=== PATIENT | female | born 1970 | race Hispanic/Latino ===

== ENCOUNTER → 2017-12-11 | Outpatient (CLI) | payer MEDICARE | END | disposition home or self-care (01) | LOC: OIH 11:42 | PROVIDERS: ATTEND Internal Medicine | DX: M05.79 Rheumatoid arthritis with rheumatoid factor of multiple sites without organ or systems involvement (principal); M85.871 Other specified disorders of bone density and structure, right ankle and foot | CPT/HCPCS: 73130; 73630 ==

== ENCOUNTER 2018-03-13 14:24 | Inpatient (IN) | payer MEDICARE ==
[~2018-03-13] VITALS: Ht 162.6 cm; Wt 91.9 kg
[2018-03-13 15:10] LABS: BASOPHILS % (AUTO) 0.4 % (0.0-5.0); EOSINOPHILS % (AUTO) 1.1 % (0.0-8.0); HEMATOCRIT 37.4 % (36-48); LYMPHOCYTES % (AUTO) 33.2 % (21.0-51.0); MEAN CORPUSCULAR HEMOGLOBIN 37.1 pg (27.0-33.0); MEAN CORPUSCULAR VOLUME 112.4 fL (79-99); MONOCYTES % (AUTO) 4.4 % (3.0-13.0); NEUTROPHILS % (AUTO) 60.9 % (40.0-77.0); NUCLEATED RED BLOOD CELLS 0.1 % (0.0-0.19); PLATELET COUNT (AUTO) 128 K/uL (130-400); RED BLOOD CELL COUNT(AUTO) 3.33 MIL/uL (4.00-5.50); RED CELL DISTRIBUTION WIDTH 15.2 % (11.0-15.5); WHITE BLOOD COUNT (AUTO) 8.9 K/uL (4.8-10.8)
[2018-03-13 15:24] LABS: CREATININE 1.4 mg/dL (0.5-1.5); POTASSIUM 3.4 mmol/L (3.5-5.1)
[2018-03-13 15:29] LABS: ALBUMIN 2.6 g/dL (3.5-5.0); BILIRUBIN,TOTAL 2.3 mg/dL (0.2-1.0); TOTAL PROTEIN, SERUM 5.8 g/dL (6.0-8.3)
[2018-03-13] MEDS ORDERED: M.V.I. IV [ADULT] 10 ML, THIAMINE HCL 100 MG, FOLIC ACID 1 MG in SODIUM CHLORIDE 0.9% 1... IV SCH (15:30)
[2018-03-13] MEDS ORDERED: FAMOTIDINE/PF 20 MG/2 ML VIAL IV ONE (15:33)
[2018-03-13] MEDS ORDERED: METOCLOPRAMIDE 10 MG/2 ML VIAL ONE (15:48)
[2018-03-13] MEDS ORDERED: MAGNESIUM SULFATE 1 GM in SODIUM CHLORIDE 0.9% 50 ML IV SCH (16:15)
[2018-03-13] MEDS ORDERED: HYDRALAZINE HCL 20 MG/ML VIAL IV PRN (16:45)
[2018-03-13] MEDS ORDERED: MORPHINE SULFATE 2 MG/ML 1ML SYG IV PRN (16:45)
[2018-03-13] MEDS ORDERED: LEVOFLOXACIN 500 MG/D5W 100 ML 100 ML IV SCH (16:45)
[2018-03-13] MEDS: METRONIDAZOLE 500MG/100ML BAG 100 ML IV SCH (16:45)
[2018-03-13 18:11] LABS: APPEARANCE,URINE Cloudy (CLEAR); BILIRUBIN,URINE Small (NEGATIVE); COLOR,URINE Dark Yellow (YELLOW); GLUCOSE, URINE (UA) Negative (NEGATIVE); KETONES,URINE 15 mg/dL (NEGATIVE); LEUKOCYTE ESTERASE ,URINE Trace (NEGATIVE); NITRATE,URINE Negative (NEGATIVE); OCCULT BLOOD,URINE Negative (NEGATIVE); PROTEIN,URINE POS 1+ (NEGATIVE)
[2018-03-13 18:21] LABS: BACTERIA,URINE Moderate /HPF (None Seen); RBC,URINE 0-1 /HPF (0-1); SQUAMOUS EPITHELIAL CELL,UR Few /HPF (0-2)
[2018-03-13 18:22] LABS: AMORPHOUS SEDIMENT,UR Few /LPF (None Seen)
[2018-03-13 18:24] LABS: HCG,QUAL RESULT NEGATIVE (NEGATIVE)
[2018-03-13] MEDS ORDERED: DEXTROSE 50%-WATER 50 ML DISP.SYRIN IV ONE (18:25)
[2018-03-13] MEDS ORDERED: LACTATED RINGERS 1000ML 1,000 ML IV ONE (20:05)
[2018-03-13 20:30] VITALS: BP 103/56
[2018-03-13] MEDS: INSULIN HUMULIN R 100 UNIT/ML 3ML SQ SCH (21:00)
[2018-03-13] MEDS ORDERED: HYDR200T4 PO (21:05)
[2018-03-13] MEDS ORDERED: TOFA11TA PO (21:05)
[2018-03-13] MEDS ORDERED: PRED5POW11 MC (21:05)
[2018-03-13] MEDS: 1/2 NORMAL SALINE 1,000 ML IV SCH (21:28)
[2018-03-13] MEDS: FAMOTIDINE/PF 20 MG/2 ML VIAL IV SCH (21:29)
[2018-03-14] VITALS (7 sets, daily range): BP systolic 85–105; BP diastolic 53–65
[2018-03-14] MEDS: METRONIDAZOLE 500MG/100ML BAG 100 ML IV SCH ×3 (00:41→17:33)
[2018-03-14] MEDS: 1/2 NORMAL SALINE 1,000 ML IV SCH (00:48)
[2018-03-14] MEDS: ONDANSETRON HCL 4 MG/2 ML VIAL IV PRN ×2 (02:15→08:55)
[2018-03-14 04:49] LABS: HEMATOCRIT 30.5 % (36-48); MEAN CORPUSCULAR HEMOGLOBIN 37.2 pg (27.0-33.0); MEAN CORPUSCULAR HGB CONC 33.4 g/dL (32.0-36.0); MEAN CORPUSCULAR VOLUME 111.5 fL (79-99); NUCLEATED RED BLOOD CELLS 0.1 % (0.0-0.19); PLATELET COUNT (AUTO) 88 K/uL (130-400); RED BLOOD CELL COUNT(AUTO) 2.74 MIL/uL (4.00-5.50); RED CELL DISTRIBUTION WIDTH 14.8 % (11.0-15.5); WHITE BLOOD COUNT (AUTO) 7.2 K/uL (4.8-10.8)
[2018-03-14 04:53] LABS: CREATININE 1.5 mg/dL (0.5-1.5)
[2018-03-14] MEDS: INSULIN HUMULIN R 100 UNIT/ML 3ML SQ SCH ×4 (06:00→21:00)
[2018-03-14] MEDS ORDERED: LIDOCAINE HCL-MPF 1% 2ML VIAL IVP PRN (06:30)
[2018-03-14] MEDS ORDERED: POTASSIUM CHLORIDE 10% ELIXIR 20 MEQ/15 ML UDCUP PO PRN (06:30)
[2018-03-14] MEDS ORDERED: POTASSIUM CHLORIDE 20MEQ/100ML 100 ML IV PRN (06:30)
[2018-03-14] MEDS ORDERED: PRED5TAB PO (07:30)
[2018-03-14] MEDS: HYDROXYCHLOROQUINE SULFATE 200 MG TAB PO SCH ×2 (08:54→21:21)
[2018-03-14] MEDS: FAMOTIDINE/PF 20 MG/2 ML VIAL IV SCH ×2 (08:55→21:21)
[2018-03-14] MEDS: PREDNISONE 5 MG TABLET PO SCH ×2 (08:55→21:21)
[2018-03-14] MEDS: DEXTROSE 5%-WATER 1,000 ML IV SCH ×2 (08:55→20:20)
[2018-03-14] MEDS ORDERED: ENOXAPARIN SODIUM 40 MG/0.4 ML SYRINGE SQ SCH (09:00)
[2018-03-14] MEDS: **HM** XELJANZ XR 11MG PO SCH (09:00)
[2018-03-14] MEDS ORDERED: PROMETHAZINE HCL 25 MG/ML 1ML AMPULE IM SCH (10:15)
[2018-03-14] MEDS: OXYCODONE/ACETAMIN 5/325MG TAB PO PRN (21:36)
[2018-03-15] MEDS: METRONIDAZOLE 500MG/100ML BAG 100 ML IV SCH ×3 (01:03→17:55)
[2018-03-15] MEDS: LEVOFLOXACIN 500 MG/D5W 100 ML 100 ML IV SCH (01:04)
[2018-03-15 03:25] VITALS: BP 89/52
[2018-03-15 04:44] LABS: BASOPHILS % (AUTO) 0.3 % (0.0-5.0); EOSINOPHILS % (AUTO) 1.1 % (0.0-8.0); HEMATOCRIT 26.3 % (36-48); LYMPHOCYTES % (AUTO) 8.8 % (21.0-51.0); MEAN CORPUSCULAR HEMOGLOBIN 36.8 pg (27.0-33.0); MEAN CORPUSCULAR HGB CONC 33.2 g/dL (32.0-36.0); MEAN CORPUSCULAR VOLUME 110.6 fL (79-99); MONOCYTES % (AUTO) 6.1 % (3.0-13.0); NEUTROPHILS % (AUTO) 83.7 % (40.0-77.0); NUCLEATED RED BLOOD CELLS 0.1 % (0.0-0.19); PLATELET COUNT (AUTO) 84 K/uL (130-400); RED BLOOD CELL COUNT(AUTO) 2.38 MIL/uL (4.00-5.50); RED CELL DISTRIBUTION WIDTH 14.9 % (11.0-15.5); WHITE BLOOD COUNT (AUTO) 4.5 K/uL (4.8-10.8)
[2018-03-15 04:50] LABS: CREATININE 1.3 mg/dL (0.5-1.5); POTASSIUM 3.2 mmol/L (3.5-5.1)
[2018-03-15] MEDS: DEXTROSE 5%-WATER 1,000 ML IV SCH ×2 (05:57→23:02)
[2018-03-15] MEDS: INSULIN HUMULIN R 100 UNIT/ML 3ML SQ SCH ×4 (06:02→20:28)
[2018-03-15 08:14] VITALS: BP 106/67
[2018-03-15] MEDS: **HM** XELJANZ XR 11MG PO SCH (09:00)
[2018-03-15] MEDS: HYDROXYCHLOROQUINE SULFATE 200 MG TAB PO SCH ×2 (09:31→22:22)
[2018-03-15] MEDS: FAMOTIDINE/PF 20 MG/2 ML VIAL IV SCH ×2 (09:31→22:22)
[2018-03-15] MEDS: PREDNISONE 5 MG TABLET PO SCH ×2 (09:31→22:22)
[2018-03-15] MEDS: POTASSIUM CHLORIDE 20 MEQ ERTAB PO PRN ×2 (09:46→17:56)
[2018-03-15 11:00] VITALS: BP 105/62
[2018-03-15 16:00] VITALS: BP 117/72
[2018-03-15 19:15] VITALS: BP 99/55
[2018-03-15] MEDS ORDERED: DEXTROSE 50%-WATER 50 ML DISP.SYRIN IV ONE (22:56)
[2018-03-15] MEDS ORDERED: DEXTROSE 50%-WATER 50 ML DISP.SYRIN IV PRN (23:00)
[2018-03-15] MEDS ORDERED: GLUCAGON 1MG KIT 1 MG ML IM PRN (23:00)
[2018-03-15] MEDS: OXYCODONE/ACETAMIN 5/325MG TAB PO PRN (23:05)
[2018-03-15 23:15] VITALS: BP 103/62
[2018-03-16] MEDS: METRONIDAZOLE 500MG/100ML BAG 100 ML IV SCH ×3 (01:34→17:39)
[2018-03-16] MEDS: LEVOFLOXACIN 500 MG/D5W 100 ML 100 ML IV SCH (02:58)
[2018-03-16 03:20] VITALS: BP 90/51
[2018-03-16 05:13] LABS: HEMATOCRIT 27.1 % (36-48); MEAN CORPUSCULAR HEMOGLOBIN 36.8 pg (27.0-33.0); MEAN CORPUSCULAR HGB CONC 33.2 g/dL (32.0-36.0); MEAN CORPUSCULAR VOLUME 110.7 fL (79-99); NUCLEATED RED BLOOD CELLS 0.1 % (0.0-0.19); PLATELET COUNT (AUTO) 68 K/uL (130-400); RED BLOOD CELL COUNT(AUTO) 2.45 MIL/uL (4.00-5.50); RED CELL DISTRIBUTION WIDTH 14.5 % (11.0-15.5); WHITE BLOOD COUNT (AUTO) 4.9 K/uL (4.8-10.8)
[2018-03-16 05:20] LABS: % IRON SATURATION 72.5 % (22-44)
[2018-03-16 05:27] LABS: CREATININE 1.6 mg/dL (0.5-1.5); POTASSIUM 4.2 mmol/L (3.5-5.1)
[2018-03-16 05:54] LABS: BAND NEUTROPHILS % (MANUAL) 3 % (0-2); EOSINOPHILS % (MANUAL) 1 % (1-6); LYMPHOCYTES % (MANUAL) 5 % (22-44); MAN.DIFF COMMENT-IMPRESSION MANUAL DIFFERENTIAL; MONOCYTES % (MANUAL) 4 % (2-9); SEGMENTED NEUTROPHILS % 87 % (40-70)
[2018-03-16 05:55] LABS: PLATELET MORPHOLOGY COMMENT MARKED DECREASE
[2018-03-16 07:00] VITALS: BP 96/64
[2018-03-16] MEDS: INSULIN HUMULIN R 100 UNIT/ML 3ML SQ SCH ×4 (07:30→20:36)
[2018-03-16] MEDS: **HM** XELJANZ XR 11MG PO SCH (09:00)
[2018-03-16] MEDS: FAMOTIDINE/PF 20 MG/2 ML VIAL IV SCH ×2 (09:33→20:09)
[2018-03-16] MEDS: HYDROXYCHLOROQUINE SULFATE 200 MG TAB PO SCH ×2 (09:33→20:09)
[2018-03-16] MEDS: PREDNISONE 5 MG TABLET PO SCH ×2 (09:33→20:09)
[2018-03-16 11:40] VITALS: BP 101/63
[2018-03-16] MEDS ORDERED: MULTIVITAMIN TABLET PO SCH (12:30)
[2018-03-16] MEDS: DEXTROSE 5%-WATER 1,000 ML IV SCH ×3 (12:34→22:34)
[2018-03-16] MEDS: MAGNESIUM 2GM PREMIX 50ML 50 ML IV PRN (14:07)
[2018-03-16 16:00] VITALS: BP 96/61
[2018-03-16 19:30] VITALS: BP 87/58
[2018-03-16] MEDS: OXYCODONE/ACETAMIN 5/325MG TAB PO PRN (20:14)
[2018-03-16 23:05] VITALS: BP 108/66
[2018-03-17] MEDS: METRONIDAZOLE 500MG/100ML BAG 100 ML IV SCH ×4 (01:52→23:54)
[2018-03-17 04:00] VITALS: BP 93/58
[2018-03-17] MEDS: LEVOFLOXACIN 500 MG/D5W 100 ML 100 ML IV SCH (04:08)
[2018-03-17 05:02] LABS: HEMATOCRIT 27.3 % (36-48); MEAN CORPUSCULAR HGB CONC 33.5 g/dL (32.0-36.0); MEAN CORPUSCULAR VOLUME 110.7 fL (79-99); PLATELET COUNT (AUTO) 77 K/uL (130-400); RED BLOOD CELL COUNT(AUTO) 2.47 MIL/uL (4.00-5.50); RED CELL DISTRIBUTION WIDTH 14.5 % (11.0-15.5); WHITE BLOOD COUNT (AUTO) 4.7 K/uL (4.8-10.8)
[2018-03-17 05:08] LABS: CREATININE 1.6 mg/dL (0.5-1.5)
[2018-03-17 05:17] LABS: BAND NEUTROPHILS % (MANUAL) 2 % (0-2); EOSINOPHILS % (MANUAL) 1 % (1-6); LYMPHOCYTES % (MANUAL) 5 % (22-44); MONOCYTES % (MANUAL) 4 % (2-9); SEGMENTED NEUTROPHILS % 88 % (40-70)
[2018-03-17 05:18] LABS: MAN.DIFF COMMENT-IMPRESSION MANUAL DIFFERENTIAL
[2018-03-17 05:19] LABS: PLATELET MORPHOLOGY COMMENT DECREASED
[2018-03-17] MEDS: INSULIN HUMULIN R 100 UNIT/ML 3ML SQ SCH ×4 (05:36→20:26)
[2018-03-17 08:00] VITALS: BP 96/68
[2018-03-17] MEDS: **HM** XELJANZ XR 11MG PO SCH (09:00)
[2018-03-17] MEDS: DEXTROSE 5%-WATER 1,000 ML IV SCH ×2 (09:25→20:33)
[2018-03-17] MEDS: MULTIVITAMIN TABLET PO SCH (09:25)
[2018-03-17] MEDS: FAMOTIDINE/PF 20 MG/2 ML VIAL IV SCH ×2 (09:25→20:26)
[2018-03-17] MEDS: PREDNISONE 5 MG TABLET PO SCH ×2 (09:25→20:26)
[2018-03-17] MEDS: HYDROXYCHLOROQUINE SULFATE 200 MG TAB PO SCH ×2 (09:25→20:26)
[2018-03-17 11:00] VITALS: BP 105/55
[2018-03-17 16:00] VITALS: BP 100/65
[2018-03-17 19:00] VITALS: BP 95/66
[2018-03-17] MEDS: OXYCODONE/ACETAMIN 5/325MG TAB PO PRN (21:30)
[2018-03-17 23:47] VITALS: BP 101/63
[2018-03-18] MEDS: LEVOFLOXACIN 500 MG/D5W 100 ML 100 ML IV SCH (01:16)
[2018-03-18 03:49] VITALS: BP 99/65
[2018-03-18] MEDS: DEXTROSE 5%-WATER 1,000 ML IV SCH ×2 (04:06→09:26)
[2018-03-18] MEDS: ONDANSETRON HCL 4 MG/2 ML VIAL IV PRN ×3 (04:23→20:43)
[2018-03-18 04:58] LABS: BASOPHILS % (AUTO) 0.2 % (0.0-5.0); EOSINOPHILS % (AUTO) 0.6 % (0.0-8.0); HEMATOCRIT 25.2 % (36-48); LYMPHOCYTES % (AUTO) 19.7 % (21.0-51.0); MEAN CORPUSCULAR HEMOGLOBIN 36.2 pg (27.0-33.0); MEAN CORPUSCULAR HGB CONC 33.1 g/dL (32.0-36.0); MEAN CORPUSCULAR VOLUME 109.4 fL (79-99); MONOCYTES % (AUTO) 9.4 % (3.0-13.0); NEUTROPHILS % (AUTO) 70.1 % (40.0-77.0); PLATELET COUNT (AUTO) 62 K/uL (130-400); RED BLOOD CELL COUNT(AUTO) 2.31 MIL/uL (4.00-5.50); RED CELL DISTRIBUTION WIDTH 13.9 % (11.0-15.5); WHITE BLOOD COUNT (AUTO) 4.5 K/uL (4.8-10.8)
[2018-03-18 05:10] LABS: CREATININE 1.6 mg/dL (0.5-1.5); MAGNESIUM 1.5 mg/dL (1.80-2.40); POTASSIUM 4.4 mmol/L (3.5-5.1)
[2018-03-18] MEDS: INSULIN HUMULIN R 100 UNIT/ML 3ML SQ SCH ×4 (05:47→20:48)
[2018-03-18] MEDS: MAGNESIUM 2GM PREMIX 50ML 50 ML IV PRN (06:16)
[2018-03-18 08:03] VITALS: BP 94/62
[2018-03-18] MEDS: **HM** XELJANZ XR 11MG PO SCH (09:00)
[2018-03-18] MEDS: MULTIVITAMIN TABLET PO SCH (09:26)
[2018-03-18] MEDS: PREDNISONE 5 MG TABLET PO SCH ×2 (09:26→20:37)
[2018-03-18] MEDS: HYDROXYCHLOROQUINE SULFATE 200 MG TAB PO SCH ×2 (09:26→20:37)
[2018-03-18] MEDS: METRONIDAZOLE 500MG/100ML BAG 100 ML IV SCH ×2 (09:26→17:28)
[2018-03-18] MEDS: FAMOTIDINE/PF 20 MG/2 ML VIAL IV SCH ×2 (09:27→20:37)
[2018-03-18 11:00] VITALS: BP 102/71
[2018-03-18] MEDS: ACETAMINOPHEN-CODEINE 300/30MG TAB PO PRN (12:40)
[2018-03-18 16:00] VITALS: BP 128/82
[2018-03-18 19:55] VITALS: BP 123/76
[2018-03-18 23:15] VITALS: BP 101/76
[2018-03-19] VITALS (22 sets, daily range): BP systolic 82–126; BP diastolic 54–85
[2018-03-19] MEDS: METRONIDAZOLE 500MG/100ML BAG 100 ML IV SCH ×3 (00:04→17:38)
[2018-03-19] MEDS: LEVOFLOXACIN 500 MG/D5W 100 ML 100 ML IV SCH (01:16)
[2018-03-19] MEDS: DEXTROSE 5%-WATER 1,000 ML IV SCH ×2 (02:36→10:34)
[2018-03-19 04:29] LABS: BASOPHILS % (AUTO) 0.2 % (0.0-5.0); EOSINOPHILS % (AUTO) 0.4 % (0.0-8.0); HEMATOCRIT 28.9 % (36-48); LYMPHOCYTES % (AUTO) 20.3 % (21.0-51.0); MEAN CORPUSCULAR HEMOGLOBIN 37.3 pg (27.0-33.0); MEAN CORPUSCULAR HGB CONC 34.1 g/dL (32.0-36.0); MEAN CORPUSCULAR VOLUME 109.3 fL (79-99); MONOCYTES % (AUTO) 6.6 % (3.0-13.0); NEUTROPHILS % (AUTO) 72.5 % (40.0-77.0); PLATELET COUNT (AUTO) 82 K/uL (130-400); RED BLOOD CELL COUNT(AUTO) 2.64 MIL/uL (4.00-5.50); RED CELL DISTRIBUTION WIDTH 14.3 % (11.0-15.5); WHITE BLOOD COUNT (AUTO) 5.8 K/uL (4.8-10.8)
[2018-03-19 04:43] LABS: CREATININE 1.6 mg/dL (0.5-1.5); MAGNESIUM 1.9 mg/dL (1.80-2.40); POTASSIUM 3.9 mmol/L (3.5-5.1)
[2018-03-19] MEDS: MAGNESIUM 2GM PREMIX 50ML 50 ML IV PRN (05:15)
[2018-03-19] MEDS: INSULIN HUMULIN R 100 UNIT/ML 3ML SQ SCH ×4 (05:55→19:46)
[2018-03-19] MEDS: **HM** XELJANZ XR 11MG PO SCH (09:00)
[2018-03-19] MEDS: PREDNISONE 5 MG TABLET PO SCH ×2 (10:57→21:22)
[2018-03-19] MEDS: HYDROXYCHLOROQUINE SULFATE 200 MG TAB PO SCH ×2 (10:58→21:22)
[2018-03-19] MEDS: FAMOTIDINE/PF 20 MG/2 ML VIAL IV SCH ×2 (10:58→21:22)
[2018-03-19] MEDS: MULTIVITAMIN TABLET PO SCH (10:58)
[2018-03-19] MEDS ORDERED: SODIUM CHLORIDE 0.9% 500ML 500 ML IV SCH (11:00)
[2018-03-19 11:21] LABS: TROPONIN I 0.07 ng/mL (0.00-0.06)
[2018-03-19 12:22] LABS: % IRON SATURATION 112.1 % (22-44)
[2018-03-19 13:56] LABS: INR 1.23 (0.85-1.15); PROTHROMBIN TIME 12.9 SEC (9.6-11.6)
[2018-03-19] MEDS ORDERED: FAT EMULSIONS 20% 250ML 250 ML IV SCH (17:21)
[2018-03-19 18:02] LABS: TROPONIN I 0.06 ng/mL (0.00-0.06)
[2018-03-19] MEDS: FAT EMULSIONS 20% 250ML 250 ML IV SCH (21:09)
[2018-03-19] MEDS: M.V.I. IV [ADULT] 10 ML in CLINIMIX E 5%-15% 2,000 ML IV SCH (21:22)
[2018-03-19] MEDS: ACETAMINOPHEN 325 MG TAB PO PRN (21:34)
[2018-03-19 23:54] LABS: TROPONIN I 0.07 ng/mL (0.00-0.06)
[2018-03-20] MEDS: METRONIDAZOLE 500MG/100ML BAG 100 ML IV SCH ×3 (00:56→16:54)
[2018-03-20] MEDS: LEVOFLOXACIN 500 MG/D5W 100 ML 100 ML IV SCH (01:39)
[2018-03-20 03:21] VITALS: BP 108/70
[2018-03-20 06:49] LABS: BASOPHILS % (AUTO) 0.2 % (0.0-5.0); EOSINOPHILS % (AUTO) 0.5 % (0.0-8.0); LYMPHOCYTES % (AUTO) 18.3 % (21.0-51.0); MEAN CORPUSCULAR HGB CONC 33.5 g/dL (32.0-36.0); MEAN CORPUSCULAR VOLUME 110.5 fL (79-99); MONOCYTES % (AUTO) 8.9 % (3.0-13.0); NEUTROPHILS % (AUTO) 72.1 % (40.0-77.0); PLATELET COUNT (AUTO) 73 K/uL (130-400); RED BLOOD CELL COUNT(AUTO) 2.53 MIL/uL (4.00-5.50); RED CELL DISTRIBUTION WIDTH 13.8 % (11.0-15.5); WHITE BLOOD COUNT (AUTO) 6.7 K/uL (4.8-10.8)
[2018-03-20 06:56] LABS: CREATININE 1.4 mg/dL (0.5-1.5); MAGNESIUM 2.1 mg/dL (1.80-2.40); POTASSIUM 3.9 mmol/L (3.5-5.1)
[2018-03-20] MEDS: INSULIN HUMULIN R 100 UNIT/ML 3ML SQ SCH ×4 (07:30→21:00)
[2018-03-20 07:48] VITALS: BP 130/67
[2018-03-20] MEDS: PREDNISONE 5 MG TABLET PO SCH ×2 (08:46→21:11)
[2018-03-20] MEDS: MULTIVITAMIN TABLET PO SCH (08:46)
[2018-03-20] MEDS: **HM** XELJANZ XR 11MG PO SCH (08:46)
[2018-03-20] MEDS: FAMOTIDINE/PF 20 MG/2 ML VIAL IV SCH ×2 (08:46→21:11)
[2018-03-20] MEDS: HYDROXYCHLOROQUINE SULFATE 200 MG TAB PO SCH ×2 (08:46→21:11)
[2018-03-20 11:08] VITALS: BP 111/66
[2018-03-20 16:37] VITALS: BP 116/78
[2018-03-20 20:01] VITALS: BP 127/77
[2018-03-20] MEDS: ACETAMINOPHEN 325 MG TAB PO PRN (21:12)
[2018-03-20] MEDS: M.V.I. IV [ADULT] 10 ML in CLINIMIX E 5%-15% 2,000 ML IV SCH (21:54)
[2018-03-21] VITALS (7 sets, daily range): BP systolic 106–137; BP diastolic 68–93
[2018-03-21] MEDS: METRONIDAZOLE 500MG/100ML BAG 100 ML IV SCH ×3 (00:47→16:44)
[2018-03-21] MEDS: LEVOFLOXACIN 500 MG/D5W 100 ML 100 ML IV SCH (00:48)
[2018-03-21 04:47] LABS: BASOPHILS % (AUTO) 0.2 % (0.0-5.0); EOSINOPHILS % (AUTO) 0.7 % (0.0-8.0); HEMATOCRIT 23.5 % (36-48); LYMPHOCYTES % (AUTO) 13.3 % (21.0-51.0); MEAN CORPUSCULAR HEMOGLOBIN 35.8 pg (27.0-33.0); MEAN CORPUSCULAR HGB CONC 32.7 g/dL (32.0-36.0); MEAN CORPUSCULAR VOLUME 109.6 fL (79-99); MONOCYTES % (AUTO) 9.9 % (3.0-13.0); NEUTROPHILS % (AUTO) 75.9 % (40.0-77.0); PLATELET COUNT (AUTO) 51 K/uL (130-400); RED BLOOD CELL COUNT(AUTO) 2.14 MIL/uL (4.00-5.50); RED CELL DISTRIBUTION WIDTH 13.8 % (11.0-15.5); WHITE BLOOD COUNT (AUTO) 4.4 K/uL (4.8-10.8)
[2018-03-21] MEDS: INSULIN HUMULIN R 100 UNIT/ML 3ML SQ SCH ×4 (05:01→21:00)
[2018-03-21 05:10] LABS: ALBUMIN 1.8 g/dL (3.5-5.0); BILIRUBIN,TOTAL 1.1 mg/dL (0.2-1.0); CREATININE 1.2 mg/dL (0.5-1.5); MAGNESIUM 1.8 mg/dL (1.80-2.40); PHOSPHORUS 3.4 mg/dL (2.5-4.9); POTASSIUM 3.9 mmol/L (3.5-5.1); TOTAL PROTEIN, SERUM 4.1 g/dL (6.0-8.3)
[2018-03-21 08:21] LABS: HEMATOCRIT 24.7 % (36-48); MEAN CORPUSCULAR HEMOGLOBIN 36.1 pg (27.0-33.0); MEAN CORPUSCULAR HGB CONC 32.8 g/dL (32.0-36.0); MEAN CORPUSCULAR VOLUME 109.8 fL (79-99); NUCLEATED RED BLOOD CELLS 0.1 % (0.0-0.19); PLATELET COUNT (AUTO) 53 K/uL (130-400); RED BLOOD CELL COUNT(AUTO) 2.25 MIL/uL (4.00-5.50); RED CELL DISTRIBUTION WIDTH 13.5 % (11.0-15.5); WHITE BLOOD COUNT (AUTO) 4.7 K/uL (4.8-10.8)
[2018-03-21] MEDS: **HM** XELJANZ XR 11MG PO SCH (09:00)
[2018-03-21] MEDS: HYDROXYCHLOROQUINE SULFATE 200 MG TAB PO SCH ×2 (09:37→21:28)
[2018-03-21] MEDS: MULTIVITAMIN TABLET PO SCH (09:37)
[2018-03-21] MEDS: PREDNISONE 5 MG TABLET PO SCH ×2 (09:37→21:28)
[2018-03-21] MEDS: FAMOTIDINE/PF 20 MG/2 ML VIAL IV SCH ×2 (09:37→21:28)
[2018-03-21] MEDS: FAT EMULSIONS 20% 250ML 250 ML IV SCH (09:38)
[2018-03-21] MEDS: ACETAMINOPHEN 325 MG TAB PO PRN ×2 (09:49→21:37)
[2018-03-21] MEDS: M.V.I. IV [ADULT] 10 ML in CLINIMIX E 5%-15% 2,000 ML IV SCH (21:20)
[2018-03-22] MEDS: METRONIDAZOLE 500MG/100ML BAG 100 ML IV SCH ×4 (00:02→23:54)
[2018-03-22] MEDS: LEVOFLOXACIN 500 MG/D5W 100 ML 100 ML IV SCH (01:15)
[2018-03-22 03:00] VITALS: BP 109/62
[2018-03-22 03:56] LABS: BASOPHILS % (AUTO) 0.3 % (0.0-5.0); EOSINOPHILS % (AUTO) 0.2 % (0.0-8.0); HEMATOCRIT 23.3 % (36-48); LYMPHOCYTES % (AUTO) 13.8 % (21.0-51.0); MEAN CORPUSCULAR HEMOGLOBIN 36.8 pg (27.0-33.0); MEAN CORPUSCULAR HGB CONC 33.4 g/dL (32.0-36.0); MEAN CORPUSCULAR VOLUME 110.2 fL (79-99); MONOCYTES % (AUTO) 8.7 % (3.0-13.0); PLATELET COUNT (AUTO) 48 K/uL (130-400); RED BLOOD CELL COUNT(AUTO) 2.12 MIL/uL (4.00-5.50); RED CELL DISTRIBUTION WIDTH 13.4 % (11.0-15.5); WHITE BLOOD COUNT (AUTO) 3.7 K/uL (4.8-10.8)
[2018-03-22 04:00] LABS: CREATININE 1.1 mg/dL (0.5-1.5); POTASSIUM 3.7 mmol/L (3.5-5.1)
[2018-03-22] MEDS: INSULIN HUMULIN R 100 UNIT/ML 3ML SQ SCH ×4 (06:15→20:35)
[2018-03-22 08:00] VITALS: BP 122/72
[2018-03-22] MEDS: PREDNISONE 5 MG TABLET PO SCH ×2 (09:57→20:34)
[2018-03-22] MEDS: MULTIVITAMIN TABLET PO SCH (09:57)
[2018-03-22] MEDS: HYDROXYCHLOROQUINE SULFATE 200 MG TAB PO SCH ×2 (09:57→20:34)
[2018-03-22] MEDS: FAMOTIDINE/PF 20 MG/2 ML VIAL IV SCH ×2 (09:57→20:35)
[2018-03-22] MEDS: ONDANSETRON HCL 4 MG/2 ML VIAL IV PRN (09:57)
[2018-03-22] MEDS: ACETAMINOPHEN 325 MG TAB PO PRN ×2 (10:19→20:35)
[2018-03-22] MEDS: **HM** XELJANZ XR 11MG PO SCH (10:20)
[2018-03-22 11:00] VITALS: BP 110/76
[2018-03-22 16:00] VITALS: BP 113/84
[2018-03-22 19:10] VITALS: BP 129/72
[2018-03-22] MEDS: M.V.I. IV [ADULT] 10 ML in CLINIMIX E 5%-15% 2,000 ML IV SCH (20:54)
[2018-03-22 23:10] VITALS: BP 122/75
[2018-03-23] MEDS: LEVOFLOXACIN 500 MG/D5W 100 ML 100 ML IV SCH (02:32)
[2018-03-23 03:10] VITALS: BP 143/58
[2018-03-23 04:43] LABS: BASOPHILS % (AUTO) 0.3 % (0.0-5.0); EOSINOPHILS % (AUTO) 0.7 % (0.0-8.0); HEMATOCRIT 24.8 % (36-48); LYMPHOCYTES % (AUTO) 10.8 % (21.0-51.0); MEAN CORPUSCULAR HEMOGLOBIN 35.3 pg (27.0-33.0); MEAN CORPUSCULAR HGB CONC 33.1 g/dL (32.0-36.0); MEAN CORPUSCULAR VOLUME 106.8 fL (79-99); MONOCYTES % (AUTO) 9.8 % (3.0-13.0); NEUTROPHILS % (AUTO) 78.4 % (40.0-77.0); PLATELET COUNT (AUTO) 42 K/uL (130-400); RED BLOOD CELL COUNT(AUTO) 2.32 MIL/uL (4.00-5.50); RED CELL DISTRIBUTION WIDTH 14.9 % (11.0-15.5); WHITE BLOOD COUNT (AUTO) 4.3 K/uL (4.8-10.8)
[2018-03-23 04:55] LABS: ALBUMIN 1.9 g/dL (3.5-5.0); BILIRUBIN,TOTAL 1.2 mg/dL (0.2-1.0); TOTAL PROTEIN, SERUM 4.2 g/dL (6.0-8.3)
[2018-03-23] MEDS: INSULIN HUMULIN R 100 UNIT/ML 3ML SQ SCH ×4 (06:33→20:25)
[2018-03-23 07:55] VITALS: BP 118/80
[2018-03-23] MEDS: FAMOTIDINE/PF 20 MG/2 ML VIAL IV SCH ×2 (09:12→20:25)
[2018-03-23] MEDS: ACETAMINOPHEN 325 MG TAB PO PRN ×2 (09:14→20:26)
[2018-03-23] MEDS: HYDROXYCHLOROQUINE SULFATE 200 MG TAB PO SCH ×2 (09:14→20:25)
[2018-03-23] MEDS: MULTIVITAMIN TABLET PO SCH (09:14)
[2018-03-23] MEDS: PREDNISONE 5 MG TABLET PO SCH ×2 (09:14→20:25)
[2018-03-23] MEDS: METRONIDAZOLE 500MG/100ML BAG 100 ML IV SCH ×2 (10:27→18:13)
[2018-03-23] MEDS: **HM** XELJANZ XR 11MG PO SCH (10:36)
[2018-03-23 11:00] VITALS: BP 121/68
[2018-03-23 16:00] VITALS: BP 139/84
[2018-03-23 19:00] VITALS: BP_SYST 130; BP_SYST 148; BP_DIAS 73; BP_DIAS 89
[2018-03-23] MEDS: NYSTATIN 15 GM POWDER TP SCH (20:28)
[2018-03-23] MEDS: HYDROCORTISONE 1% 28.35 GM CREAM TP SCH (20:28)
[2018-03-23] MEDS: M.V.I. IV [ADULT] 10 ML in CLINIMIX E 5%-15% 2,000 ML IV SCH (21:20)
[2018-03-23 23:05] VITALS: BP 91/63
[2018-03-24] VITALS (23 sets, daily range): BP systolic 98–152; BP diastolic 61–97
[2018-03-24] MEDS: METRONIDAZOLE 500MG/100ML BAG 100 ML IV SCH ×3 (00:52→16:45)
[2018-03-24] MEDS: LEVOFLOXACIN 500 MG/D5W 100 ML 100 ML IV SCH (02:07)
[2018-03-24 05:33] LABS: BASOPHILS % (AUTO) 0.4 % (0.0-5.0); EOSINOPHILS % (AUTO) 0.1 % (0.0-8.0); HEMATOCRIT 24.4 % (36-48); LYMPHOCYTES % (AUTO) 12.9 % (21.0-51.0); MEAN CORPUSCULAR HEMOGLOBIN 36.1 pg (27.0-33.0); MEAN CORPUSCULAR HGB CONC 33.6 g/dL (32.0-36.0); MEAN CORPUSCULAR VOLUME 107.6 fL (79-99); MONOCYTES % (AUTO) 10.7 % (3.0-13.0); NEUTROPHILS % (AUTO) 75.9 % (40.0-77.0); NUCLEATED RED BLOOD CELLS 0.1 % (0.0-0.19); PLATELET COUNT (AUTO) 46 K/uL (130-400); RED BLOOD CELL COUNT(AUTO) 2.27 MIL/uL (4.00-5.50); RED CELL DISTRIBUTION WIDTH 14.4 % (11.0-15.5); WHITE BLOOD COUNT (AUTO) 4.2 K/uL (4.8-10.8)
[2018-03-24 05:38] LABS: CREATININE 0.9 mg/dL (0.5-1.5); POTASSIUM 4.3 mmol/L (3.5-5.1)
[2018-03-24] MEDS: INSULIN HUMULIN R 100 UNIT/ML 3ML SQ SCH ×4 (06:32→21:00)
[2018-03-24] MEDS ORDERED: PROPOFOL 10 MG/ML 20ML VIAL IV ONE (08:12)
[2018-03-24] MEDS: **HM** XELJANZ XR 11MG PO SCH (09:00)
[2018-03-24] MEDS: FAMOTIDINE/PF 20 MG/2 ML VIAL IV SCH ×2 (09:54→22:19)
[2018-03-24] MEDS: PREDNISONE 5 MG TABLET PO SCH ×2 (09:54→22:19)
[2018-03-24] MEDS: HYDROXYCHLOROQUINE SULFATE 200 MG TAB PO SCH ×2 (09:54→22:19)
[2018-03-24] MEDS: MULTIVITAMIN TABLET PO SCH (09:54)
[2018-03-24] MEDS: ACETAMINOPHEN 325 MG TAB PO PRN ×2 (10:11→22:21)
[2018-03-24 13:06] LABS: % IRON SATURATION 58.9 % (22-44)
[2018-03-24] MEDS: FAT EMULSIONS 20% 250ML 250 ML IV SCH (14:50)
[2018-03-24] MEDS ORDERED: M.V.I. IV [ADULT] 10 ML in CLINIMIX E 5%-15% 2,000 ML IV ONE (18:00)
[2018-03-24] MEDS: HYDROCORTISONE 1% 28.35 GM CREAM TP SCH ×2 (18:06→22:21)
[2018-03-24] MEDS: NYSTATIN 15 GM POWDER TP SCH ×3 (18:06→22:21)
[2018-03-25] MEDS: METRONIDAZOLE 500MG/100ML BAG 100 ML IV SCH ×4 (01:27→23:57)
[2018-03-25] MEDS: LEVOFLOXACIN 500 MG/D5W 100 ML 100 ML IV SCH ×2 (02:19→23:56)
[2018-03-25 03:00] VITALS: BP 135/36
[2018-03-25 06:21] LABS: BASOPHILS % (AUTO) 0.4 % (0.0-5.0); EOSINOPHILS % (AUTO) 0.5 % (0.0-8.0); HEMATOCRIT 24.2 % (36-48); LYMPHOCYTES % (AUTO) 9.1 % (21.0-51.0); MEAN CORPUSCULAR HEMOGLOBIN 35.6 pg (27.0-33.0); MEAN CORPUSCULAR HGB CONC 33.1 g/dL (32.0-36.0); MEAN CORPUSCULAR VOLUME 107.7 fL (79-99); MONOCYTES % (AUTO) 9.5 % (3.0-13.0); NEUTROPHILS % (AUTO) 80.5 % (40.0-77.0); PLATELET COUNT (AUTO) 41 K/uL (130-400); RED BLOOD CELL COUNT(AUTO) 2.25 MIL/uL (4.00-5.50); RED CELL DISTRIBUTION WIDTH 14.9 % (11.0-15.5); WHITE BLOOD COUNT (AUTO) 4.5 K/uL (4.8-10.8)
[2018-03-25] MEDS: INSULIN HUMULIN R 100 UNIT/ML 3ML SQ SCH ×4 (06:41→20:56)
[2018-03-25 06:46] LABS: POTASSIUM 4.1 mmol/L (3.5-5.1)
[2018-03-25 08:00] VITALS: BP 124/83
[2018-03-25] MEDS: NYSTATIN 15 GM POWDER TP SCH ×3 (09:00→19:53)
[2018-03-25] MEDS: **HM** XELJANZ XR 11MG PO SCH (09:00)
[2018-03-25] MEDS: HYDROCORTISONE 1% 28.35 GM CREAM TP SCH ×2 (09:00→19:54)
[2018-03-25] MEDS: HYDROXYCHLOROQUINE SULFATE 200 MG TAB PO SCH ×2 (09:22→19:53)
[2018-03-25] MEDS: FAMOTIDINE/PF 20 MG/2 ML VIAL IV SCH ×2 (09:22→19:53)
[2018-03-25] MEDS: PREDNISONE 5 MG TABLET PO SCH ×2 (09:23→19:54)
[2018-03-25] MEDS: ACETAMINOPHEN 325 MG TAB PO PRN (09:23)
[2018-03-25] MEDS: MULTIVITAMIN TABLET PO SCH (09:23)
[2018-03-25] MEDS ORDERED: FAT EMULSIONS 20% 250ML 250 ML IV SCH (10:00)
[2018-03-25 11:45] VITALS: BP 120/81
[2018-03-25 16:00] VITALS: BP 129/81
[2018-03-25] MEDS: ACETAMINOPHEN-CODEINE 300/30MG TAB PO PRN (19:58)
[2018-03-25 20:00] VITALS: BP 121/80
[2018-03-26] VITALS: BP 106/65
[2018-03-26 04:00] VITALS: BP 135/79
[2018-03-26 05:29] LABS: BASOPHILS % (AUTO) 0.3 % (0.0-5.0); EOSINOPHILS % (AUTO) 0.3 % (0.0-8.0); HEMATOCRIT 22.9 % (36-48); LYMPHOCYTES % (AUTO) 13.6 % (21.0-51.0); MEAN CORPUSCULAR HEMOGLOBIN 36.6 pg (27.0-33.0); MEAN CORPUSCULAR HGB CONC 33.9 g/dL (32.0-36.0); NEUTROPHILS % (AUTO) 75.8 % (40.0-77.0); PLATELET COUNT (AUTO) 52 K/uL (130-400); RED BLOOD CELL COUNT(AUTO) 2.12 MIL/uL (4.00-5.50); RED CELL DISTRIBUTION WIDTH 14.7 % (11.0-15.5); WHITE BLOOD COUNT (AUTO) 4.1 K/uL (4.8-10.8)
[2018-03-26 05:35] LABS: CREATININE 0.9 mg/dL (0.5-1.5); POTASSIUM 3.9 mmol/L (3.5-5.1)
[2018-03-26] MEDS: INSULIN HUMULIN R 100 UNIT/ML 3ML SQ SCH ×3 (06:34→16:11)
[2018-03-26 07:54] VITALS: BP 128/90
[2018-03-26] MEDS: **HM** XELJANZ XR 11MG PO SCH (09:00)
[2018-03-26] MEDS: MULTIVITAMIN TABLET PO SCH (09:06)
[2018-03-26] MEDS: FAMOTIDINE/PF 20 MG/2 ML VIAL IV SCH (09:06)
[2018-03-26] MEDS: PREDNISONE 5 MG TABLET PO SCH (09:06)
[2018-03-26] MEDS: HYDROXYCHLOROQUINE SULFATE 200 MG TAB PO SCH (09:06)
[2018-03-26] MEDS: METRONIDAZOLE 500MG/100ML BAG 100 ML IV SCH ×2 (09:07→16:52)
[2018-03-26] MEDS: HYDROCORTISONE 1% 28.35 GM CREAM TP SCH (09:14)
[2018-03-26] MEDS: NYSTATIN 15 GM POWDER TP SCH ×2 (09:14→14:00)
[2018-03-26] MEDS: ACETAMINOPHEN 325 MG TAB PO PRN (09:14)
[2018-03-26 11:28] VITALS: BP 127/77
[2018-03-26 16:00] VITALS: BP 125/82
== END 2018-03-26 19:35 | DRG 393 ==
LOC: EDH 14:24 → EDHIP 16:20 → OBSVTOIN 16:20 → 4AH 17:41 → 4BH 03-16 21:10
PROVIDERS: ADMIT Hospitalist; ATTEND Hospitalist
PROC: 30233N1 Transfusion of Nonautologous Red Blood Cells into Peripheral Vein, Percutaneous Approach (ICD-10-PCS; 2018-03-19)
PROC: 02HV33Z Insertion of Infusion Device into Superior Vena Cava, Percutaneous Approach (ICD-10-PCS; 2018-03-19)
PROC: 0D768ZZ Dilation of Stomach, Via Natural or Artificial Opening Endoscopic (ICD-10-PCS; principal; 2018-03-24)
PROC: 0DB68ZX Excision of Stomach, Via Natural or Artificial Opening Endoscopic, Diagnostic (ICD-10-PCS; 2018-03-24)
PROC: 0D7A8ZZ Dilation of Jejunum, Via Natural or Artificial Opening Endoscopic (ICD-10-PCS; 2018-03-24)
DX: K95.89 Other complications of other bariatric procedure (principal); N17.0 Acute kidney failure with tubular necrosis; A04.72 Enterocolitis due to Clostridium difficile, not specified as recurrent; K90.9 Intestinal malabsorption, unspecified; E87.0 Hyperosmolality and hypernatremia; K91.850 Pouchitis; E86.0 Dehydration; I10 Essential (primary) hypertension; E11.9 Type 2 diabetes mellitus without complications; E87.6 Hypokalemia; K76.0 Fatty (change of) liver, not elsewhere classified; E66.01 Morbid (severe) obesity due to excess calories; D64.9 Anemia, unspecified; E83.42 Hypomagnesemia; M06.9 Rheumatoid arthritis, unspecified; R63.3 Feeding difficulties; Z68.34 Body mass index [BMI] 34.0-34.9, adult; Z98.84 Bariatric surgery status; Z88.1 Allergy status to other antibiotic agents; Z88.8 Allergy status to other drugs, medicaments and biological substances
CPT/HCPCS: 36415; 36430; 43239; 43249; 70450; 71045; 74176; 80048; 80053; 80061; 81001; 81025; 82270; 82306; 82525; 82533; 82550; 82607; 82728; 82746; 82948; 83540; 83550; 83605; 83615; 83690; 83735; 83874; 84100; 84132; 84207; 84425; 84443; 84484; 85025; 85027; 85378; 85610; 86850; 86900; 86901; 86922; 87507; 88305; 93005; 93971; 97039; A6250; C1725; C1894; G0378; G0480; J1650; J1956; J2405; J2550; J2704; J2765; J3411; J3475; J3480; J3490; J7030; J7040; J7070; J7120; J7512; P9016

== ENCOUNTER 2018-06-13 12:05 | Inpatient (IN) | payer MEDICARE ==
[~2018-06-13] VITALS: Ht 162.6 cm; Wt 82.9 kg
[~2018-06-13 12:05] MED LIST: FAMO20TA8 PO; HYDR200T4 PO; METR-172 PO; PANT40TA25 PO; PRED5TAB PO; TOFA11TA PO
[2018-06-13 13:10] LABS: BASOPHILS % (AUTO) 0.3 % (0.0-5.0); EOSINOPHILS % (AUTO) 0.3 % (0.0-8.0); HEMATOCRIT 35.8 % (36-48); MEAN CORPUSCULAR HEMOGLOBIN 35.8 pg (27.0-33.0); MEAN CORPUSCULAR HGB CONC 32.7 g/dL (32.0-36.0); MEAN CORPUSCULAR VOLUME 109.4 fL (79-99); MONOCYTES % (AUTO) 6.6 % (3.0-13.0); NEUTROPHILS % (AUTO) 73.8 % (40.0-77.0); NUCLEATED RED BLOOD CELLS 0.1 % (0.0-0.19); PLATELET COUNT (AUTO) 123 K/uL (130-400); RED BLOOD CELL COUNT(AUTO) 3.27 MIL/uL (4.00-5.50); RED CELL DISTRIBUTION WIDTH 17.4 % (11.0-15.5)
[2018-06-13] MEDS ORDERED: ONDANSETRON HCL 4 MG/2 ML VIAL ONE (13:18)
[2018-06-13 13:23] LABS: ALBUMIN 2.3 g/dL (3.5-5.0); BILIRUBIN,DIRECT 0.4 mg/dL (0.0-0.3); BILIRUBIN,TOTAL 1.4 mg/dL (0.2-1.0); CREATININE 1.3 mg/dL (0.5-1.5); POTASSIUM 4.5 mmol/L (3.5-5.1); TOTAL PROTEIN, SERUM 5.7 g/dL (6.0-8.3)
[2018-06-13] MEDS: SODIUM CHLORIDE 0.9% 1000ML 1,000 ML IV SCH (17:40)
[2018-06-13] MEDS ORDERED: HYDRALAZINE HCL 20 MG/ML VIAL IV PRN (17:45)
[2018-06-13] MEDS ORDERED: ONDANSETRON HCL 4 MG/2 ML VIAL IV PRN (17:45)
[2018-06-13] MEDS ORDERED: LOPERAMIDE HCL 2 MG CAP PO PRN (17:45)
[2018-06-13] MEDS ORDERED: M.V.I. IV [ADULT] 10 ML, FOLIC ACID 1 MG, THIAMINE HCL 100 MG in SODIUM CHLORIDE 0.9% 1... IV SCH (18:15)
[2018-06-13] MEDS ORDERED: COMPOUND IV REFRIGERATED 1 EACH IVSOLN MISC PRN (18:30)
[2018-06-13] MEDS ORDERED: COMPOUND IV MISC 1 EACH IVSOLN MISC PRN (18:30)
[2018-06-13 20:30] VITALS: BP 92/55
--- NOTE | 2018-06-13 20:40 | NUR ---
Received pt. from ER ,pt. is awake and coherent with ongoing Banana bag infusing @ 100 ml/hr.
[2018-06-13] MEDS: FAMOTIDINE/PF 20 MG/2 ML VIAL IV SCH (21:11)
[2018-06-14] VITALS (7 sets, daily range): BP systolic 86–111; BP diastolic 48–66
[2018-06-14] MEDS: SODIUM CHLORIDE 0.9% 1000ML 1,000 ML IV SCH (04:35)
[2018-06-14] MEDS: DEXTROSE 5%-WATER 1,000 ML IV SCH ×2 (08:54→22:27)
[2018-06-14] MEDS: FAMOTIDINE/PF 20 MG/2 ML VIAL IV SCH ×2 (08:54→20:58)
[2018-06-14] MEDS: PREDNISONE 5 MG TABLET PO SCH ×2 (08:54→20:58)
[2018-06-14] MEDS: HYDROXYCHLOROQUINE SULFATE 200 MG TAB PO SCH ×2 (08:54→20:58)
[2018-06-14] MEDS: ENOXAPARIN SODIUM 40 MG/0.4 ML SYRINGE SQ SCH (08:55)
[2018-06-14] MEDS: TOFACITINIB CITRATE 11 MG PO SCH (08:55)
[2018-06-14] MEDS: IRON SUCROSE COMPLEX 100 MG in SODIUM CHLORIDE 0.9% 50 ML IV SCH (10:53)
--- NOTE | 2018-06-14 16:25 | NUR ---
INITIAL: Met with pt this afternoon to discuss dcp. Pt states that she lives w her 24yo son. Prior to admission has been mostly wc bound. Transfers w assist and completes ADLs w assist. Pt states that she owns a sh chair and 3in1 commode. Pt states that she feels short term rehab will benefit her prior to return home. She mentions that she has declined greatly in function. KRZYSZTOF/PC consents signed for both [facility]. Pt states that she would like to speak w both reps before making final decision. Referral/calls made to both [facility] and [facility]. Addendum: 06/15/18 at 1800 by ZAKI LANDA CM Amended: Links added.
[2018-06-14] MEDS: ACETAMINOPHEN-CODEINE 300/30MG TAB PO PRN (20:58)
[2018-06-15] VITALS (7 sets, daily range): BP systolic 82–103; BP diastolic 51–76
[2018-06-15 07:46] LABS: BASOPHILS % (AUTO) 0.2 % (0.0-5.0); EOSINOPHILS % (AUTO) 0.3 % (0.0-8.0); HEMATOCRIT 31.3 % (36-48); LYMPHOCYTES % (AUTO) 22.4 % (21.0-51.0); MEAN CORPUSCULAR VOLUME 109.3 fL (79-99); MONOCYTES % (AUTO) 6.3 % (3.0-13.0); NEUTROPHILS % (AUTO) 70.8 % (40.0-77.0); PLATELET COUNT (AUTO) 94 K/uL (130-400); RED BLOOD CELL COUNT(AUTO) 2.86 MIL/uL (4.00-5.50); RED CELL DISTRIBUTION WIDTH 17.9 % (11.0-15.5); WHITE BLOOD COUNT (AUTO) 5.9 K/uL (4.8-10.8)
[2018-06-15 08:11] LABS: CREATININE 1.2 mg/dL (0.5-1.5)
[2018-06-15 08:15] LABS: POTASSIUM 2.9 mmol/L (3.5-5.1)
[2018-06-15] MEDS: FAMOTIDINE/PF 20 MG/2 ML VIAL IV SCH ×2 (08:42→21:15)
[2018-06-15] MEDS: PREDNISONE 5 MG TABLET PO SCH ×2 (08:42→21:15)
[2018-06-15] MEDS: HYDROXYCHLOROQUINE SULFATE 200 MG TAB PO SCH ×2 (08:42→21:15)
[2018-06-15] MEDS: IRON SUCROSE COMPLEX 100 MG in SODIUM CHLORIDE 0.9% 50 ML IV SCH (08:42)
[2018-06-15] MEDS: ENOXAPARIN SODIUM 40 MG/0.4 ML SYRINGE SQ SCH ×2 (08:43→08:57)
[2018-06-15] MEDS ORDERED: POTASSIUM CHLORIDE 10% ELIXIR 20 MEQ/15 ML UDCUP PO PRN (08:45)
[2018-06-15] MEDS ORDERED: POTASSIUM CHLORIDE 20MEQ/100ML 100 ML IV PRN (08:45)
[2018-06-15] MEDS ORDERED: LIDOCAINE HCL-MPF 1% 2ML VIAL IVP PRN (08:45)
[2018-06-15] MEDS: TOFACITINIB CITRATE 11 MG PO SCH (08:57)
[2018-06-15] MEDS: ACETAMINOPHEN-CODEINE 300/30MG TAB PO PRN ×2 (09:48→22:25)
[2018-06-15] MEDS: POTASSIUM CHLORIDE 20 MEQ ERTAB PO PRN ×2 (10:35→14:40)
[2018-06-15] MEDS: DEXTROSE 5%-WATER 1,000 ML IV SCH (11:30)
--- NOTE | 2018-06-15 11:50 | NUR ---
RD Notification Patient with small appetite secondary to Bariatric procedure. Current PO intake 50-75%. Patient with Regular diet in place with no report GI distress. Rec to modify to 75gm CCD. Also rec to add 30mL ProMod BID for increased oral intake. Rec to add Multivitamin. Patient LBM 06/13/18. Patient monitored labs: GFR 47, Ca 8.2, T. Bili 1.4, Alk 148, Alb 2.3, Lipase 54. Patient with request of Bariatric sample menu and Protein foods education;RD to follow up. RD to continue to monitor.Please notify RD as nutritional concerns arise. Thank you. Addendum: 06/15/18 at [address] RD Amended: Links added.
--- NOTE | 2018-06-15 17:00 | NUR ---
[facility]: Opal from [facility] here to eval and speak w pt. Will continue to follow and wait for pt final decision.
[2018-06-15 18:58] LABS: MAGNESIUM 1.2 mg/dL (1.80-2.40); POTASSIUM 3.9 mmol/L (3.5-5.1)
[2018-06-15] MEDS ORDERED: DEXTROSE 50%-WATER 50 ML DISP.SYRIN IV PRN (19:45)
[2018-06-15] MEDS ORDERED: GLUCAGON 1MG KIT 1 MG ML IM PRN (19:45)
[2018-06-15] MEDS ORDERED: MAGNESIUM 2GM PREMIX 50ML 50 ML IV PRN (19:45)
[2018-06-16] VITALS (9 sets, daily range): BP systolic 88–113; BP diastolic 59–82
[2018-06-16] MEDS: DEXTROSE 5%-WATER 1,000 ML IV SCH ×3 (00:51→21:49)
[2018-06-16] MEDS: ENOXAPARIN SODIUM 40 MG/0.4 ML SYRINGE SQ SCH (09:00)
[2018-06-16] MEDS: TOFACITINIB CITRATE 11 MG PO SCH (09:00)
[2018-06-16] MEDS: ACETAMINOPHEN-CODEINE 300/30MG TAB PO PRN ×2 (10:45→22:43)
[2018-06-16] MEDS: PREDNISONE 5 MG TABLET PO SCH ×2 (10:46→21:48)
[2018-06-16] MEDS: HYDROXYCHLOROQUINE SULFATE 200 MG TAB PO SCH ×2 (10:46→21:48)
[2018-06-16] MEDS: FAMOTIDINE/PF 20 MG/2 ML VIAL IV SCH ×2 (10:46→21:48)
[2018-06-16] MEDS: IRON SUCROSE COMPLEX 100 MG in SODIUM CHLORIDE 0.9% 50 ML IV SCH (10:47)
--- NOTE | 2018-06-16 14:00 | NUR ---
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 PT WAS ALREADY SEEN BY JOSE G;, DO NOT KNOW WHAT SHE WAS TOLD BY [facility]. TO FOLLOW UP IN AM Addendum: 06/16/18 at 1723 by BASSAM GREENE RN CM Amended: Links added.
[2018-06-17 04:00] VITALS: BP 110/75
[2018-06-17 05:26] LABS: BASOPHILS % (AUTO) 0.1 % (0.0-5.0); EOSINOPHILS % (AUTO) 0.3 % (0.0-8.0); HEMATOCRIT 24.1 % (36-48); LYMPHOCYTES % (AUTO) 11.8 % (21.0-51.0); MEAN CORPUSCULAR VOLUME 108.9 fL (79-99); MONOCYTES % (AUTO) 8.4 % (3.0-13.0); NEUTROPHILS % (AUTO) 79.4 % (40.0-77.0); PLATELET COUNT (AUTO) 97 K/uL (130-400); RED BLOOD CELL COUNT(AUTO) 2.22 MIL/uL (4.00-5.50); RED CELL DISTRIBUTION WIDTH 17.4 % (11.0-15.5); WHITE BLOOD COUNT (AUTO) 4.7 K/uL (4.8-10.8)
[2018-06-17 05:46] LABS: CREATININE 1.3 mg/dL (0.5-1.5); POTASSIUM 3.7 mmol/L (3.5-5.1)
[2018-06-17 08:32] VITALS: BP 97/66
[2018-06-17] MEDS: TOFACITINIB CITRATE 11 MG PO SCH (08:53)
[2018-06-17] MEDS: HYDROXYCHLOROQUINE SULFATE 200 MG TAB PO SCH ×2 (10:36→22:14)
[2018-06-17] MEDS: PREDNISONE 5 MG TABLET PO SCH ×2 (10:36→22:14)
[2018-06-17] MEDS: IRON SUCROSE COMPLEX 100 MG in SODIUM CHLORIDE 0.9% 50 ML IV SCH (10:37)
[2018-06-17] MEDS: FAMOTIDINE/PF 20 MG/2 ML VIAL IV SCH ×2 (10:37→21:00)
[2018-06-17] MEDS: MIDODRINE HCL 5 MG TABLET PO SCH ×3 (10:43→22:13)
[2018-06-17] MEDS: ACETAMINOPHEN-CODEINE 300/30MG TAB PO PRN ×2 (11:00→22:15)
[2018-06-17 13:05] VITALS: BP 108/74
[2018-06-17 13:06] VITALS: BP 107/75
--- NOTE | 2018-06-17 13:51 | NUR ---
Nutrition f/u: Pt with multiple nutritional questions on bariatric diet. GLORIA reviewed bariatric diet with pt and provided a Protein Content of food. Pt became emotional stating she has been through a lot after her bariatric surgery. GLORIA provided emotional support to patient and encourage to continue drinking her multivitamin with iron on a daily basis and drink a daily protein shake. Recommendations: Continue current diet therapy. Consult RD as nutrition concerns arise. Addendum: 06/17/18 at [address] RD Amended: Links added.
--- NOTE | 2018-06-17 15:40 | NUR ---
CM DC PLANNING UPDATE VISIT WITH MS MENSAH FROM [facility] REGARDING COPAYS ETC DURING SNF STAY. PAS PER BETTE, GOOD TO DISCHARGE TO [facility] VIA [facility]. PRIMARY RN JOSE PEREZ
[2018-06-17 16:05] VITALS: BP 97/70
[2018-06-17] MEDS ORDERED: LACTULOSE 20 GM/30 ML UDCUP PO ONE (18:30)
[2018-06-17 19:16] VITALS: BP 115/83
[2018-06-18 00:10] VITALS: BP 100/61
[2018-06-18 04:22] VITALS: BP 108/84
[2018-06-18 04:26] VITALS: BP 126/78
[2018-06-18 07:00] VITALS: BP 98/77
[2018-06-18 07:03] VITALS: BP_SYST 113
[2018-06-18] MEDS: IRON SUCROSE COMPLEX 100 MG in SODIUM CHLORIDE 0.9% 50 ML IV SCH (09:00)
[2018-06-18] MEDS: TOFACITINIB CITRATE 11 MG PO SCH (09:00)
[2018-06-18] MEDS: FAMOTIDINE/PF 20 MG/2 ML VIAL IV SCH (09:00)
[2018-06-18] MEDS: PREDNISONE 5 MG TABLET PO SCH (09:40)
[2018-06-18] MEDS: HYDROXYCHLOROQUINE SULFATE 200 MG TAB PO SCH (09:41)
[2018-06-18] MEDS: MIDODRINE HCL 5 MG TABLET PO SCH (09:41)
[2018-06-18] MEDS: ACETAMINOPHEN-CODEINE 300/30MG TAB PO PRN (10:35)
[2018-06-18 11:00] VITALS: BP_SYST 108; BP_SYST 113; BP_DIAS 78; BP_DIAS 79
--- NOTE | 2018-06-18 13:22 | NUR ---
PATIENT DISCHARGED PATIENT DISCHARGED, REPORT CALLED TO ELFEGO SAINI AT [facility] AT APPROX 1145 HOURS. TRANSPORTATION PROVIDED BY [facility]. TELE REMOVED.
== END 2018-06-18 12:30 | DRG 312 ==
LOC: EDH 12:05 → EDHIP 17:40 → OBSVTOIN 17:40 → 3BH 19:46
PROVIDERS: ADMIT Internal Medicine; ATTEND Internal Medicine
DX: I95.1 Orthostatic hypotension (principal); E87.0 Hyperosmolality and hypernatremia; K91.1 Postgastric surgery syndromes; E86.0 Dehydration; F32.9 Major depressive disorder, single episode, unspecified; D64.9 Anemia, unspecified; D69.6 Thrombocytopenia, unspecified; M06.9 Rheumatoid arthritis, unspecified; F17.210 Nicotine dependence, cigarettes, uncomplicated; Z88.1 Allergy status to other antibiotic agents; Z88.8 Allergy status to other drugs, medicaments and biological substances; Z98.84 Bariatric surgery status; Z82.3 Family history of stroke; Z83.3 Family history of diabetes mellitus; Z82.5 Family history of asthma and other chronic lower respiratory diseases; Z82.49 Family history of ischemic heart disease and other diseases of the circulatory system; Z80.9 Family history of malignant neoplasm, unspecified
CPT/HCPCS: 36415; 73630; 80048; 80076; 82306; 82550; 82607; 82746; 83540; 83550; 83690; 83735; 84132; 84425; 84446; 84484; 84590; 85025; 93005; 97039; G0378; J1650; J1756; J2405; J3411; J3475; J3480; J3490; J7030; J7070; J7512